=== PATIENT | female | born 1990 | race Caucasian/White ===

== ENCOUNTER 2018-11-14 05:54 | Emergency (ER) | payer OTHER ==
[~2018-11-14] VITALS: Ht 157.5 cm; Wt 68.0 kg
[2018-11-14 06:10] VITALS: BP 122/78
[2018-11-14] MEDS ORDERED: AZIT250T PO (06:39)
[2018-11-14] MEDS ORDERED: ALBU2.5V8 IH (06:39)
[2018-11-14] MEDS ORDERED: D-ME118S2 PO (06:39)
--- NOTE | 2018-11-14 06:39 | PHYS DOC ---
Past History Past Medical History: No Pertinent History Past Surgical History: Spleenectomy Smoking: Non-smoker Alcohol Use: None Drug Use: None Adult General Chief Complaint Chief Complaint: COUGH HPI HPI Patient is a 28-year-old female presents complaining of cough and nasal congestion. Patient has a sick daughter with symptoms that started yesterday. Patient's symptoms started late yesterday/early this morning. 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 Patient is not currently taking any medicines. Nothing makes the cough better or worse. No difficulty breathing. Nonproductive cough. Symptoms are mild to moderate.[] Review of Systems Review of Systems Constitutional: Denies fever or chills [] Eyes: Denies change in visual acuity, redness, or eye pain [] HENT: See history of present illness[] Respiratory: See history of present illness[] Cardiovascular: No chest pain or palpitations[] GI: Denies abdominal pain, nausea, vomiting, bloody stools or diarrhea [] : Denies dysuria or hematuria [] Musculoskeletal: Denies back pain or joint pain [] Integument: Denies rash or skin lesions [] Neurologic: Denies headache, focal weakness or sensory changes [] Endocrine: Denies polyuria or polydipsia [] All other systems were reviewed and found to be within normal limits, except as documented in this note. Allergies Allergies Allergies Coded Allergies Type Severity Reaction Last Updated Verified amoxicillin Allergy Mild 11/14/18 Yes Physical Exam Physical Exam Constitutional: Well developed, well nourished, no acute distress, non-toxic appearance. [] HENT: Normocephalic, atraumatic, bilateral external ears normal, oropharynx moist, no oral exudates, nose normal. Posterior pharyngeal streaking is present[] Eyes: PERRLA, EOMI, conjunctiva normal, no discharge. [] Neck: Normal range of motion, no tenderness, supple, no stridor. [] Cardiovascular:Heart rate regular rhythm, no murmur [] Lungs & Thorax: Bilateral breath sounds clear to auscultation no retractions, no increased work of breathing [] Abdomen: Bowel sounds normal, soft, no tenderness, no masses, no pulsatile masses. [] Skin: Warm, dry, no erythema, no rash. [] Back: No tenderness, no CVA tenderness. [] Extremities: No tenderness, no cyanosis, no clubbing, ROM intact, no edema. [] Neurologic: Alert and oriented X 3, normal motor function, normal sensory f unction, no focal deficits noted. [] Psychologic: Affect normal, judgement normal, mood normal. [] Current Patient Data Vital Signs Vital Signs Date Time Temp Pulse Resp B/P (MAP) Pulse Ox O2 Delivery O2 Flow Rate FiO2 11/14/18 06:10 98.2 90 20 96 Room Air EKG EKG [] Radiology/Procedures Radiology/Procedures [] Course & Med Decision Making Course & Med Decision Making Pertinent Labs and Imaging studies reviewed. (See chart for details) Medical decision making: Patient with what appears to be an upper respiratory infection. We will treat with prophylactic antibiotics given her history of splenectomy. Lung sounds are clear normal oxygen saturation do not believe there to be a pneumonia at this time. Will also provide symptomatic relief.[] Dragon Disclaimer Dragon Disclaimer This electronic medical record was generated, in whole or in part, using a voice recognition dictation system. Departure Departure: Impression: Primary Impression: Upper respiratory infection Disposition: HOME, SELF-CARE Condition: IMPROVED Referrals: [facility] (PCP) Patient Instructions: Splenectomy, Long-Term Care After, Upper Respiratory Infection, Adult Additional Instructions: Follow-up with your regular doctor/sick call in 2 days. Drink plenty of fluids. Return to the ER if worsening difficulty breathing or any other concerns. Scripts Albuterol Sulfate (VENTOLIN HFA INHALER) 18 Gm Hfa.aer.ad 2 PUFF IH PRN Q4HRS PRN for COUGH, #1 INHALER 0 Refills Prov: TAMAR NOLEN DO 11/14/18 Azithromycin (ZITHROMAX) 250 Mg Tablet 1 PKG PO UD for upper respiratory infection, #1 PKG Prov: TAMAR NOLEN DO 11/14/18 D-Methorphan Hb/Prometh Hcl (PROMETHAZINE-DM SYRUP) 118 Ml Syrup 5 ML PO PRN Q4HRS for CONGESTION, #120 ML Prov: TAMAR NOLEN DO 11/14/18 Problem Qualifiers Primary Impression: Upper respiratory infection URI type: unspecified URI Qualified Codes: J06.9 - Acute upper respiratory infection, unspecified TAMAR NOLEN DO Nov 14, 2018 06:39
== END 2018-11-14 06:49 | disposition home or self-care (01) ==
LOC: ER 05:54
DX: J06.9 Acute upper respiratory infection, unspecified (principal); Z88.1 Allergy status to other antibiotic agents
CPT/HCPCS: 99283

== ENCOUNTER 2019-01-10 06:00 | Emergency (ER) | payer OTHER ==
[~2019-01-10] VITALS: Ht 157.5 cm; Wt 68.0 kg
[~2019-01-10 06:00] MED LIST: ALBU2.5V8 IH; AZIT250T PO; PROM118S9 PO
[2019-01-10 06:10] VITALS: BP 120/67
--- NOTE | 2019-01-10 06:30 | PHYS DOC ---
Past History Past Medical History: No Pertinent History Past Surgical History: Spleenectomy, Other Additional Past Surgical Histo: wisdom teeth extraction Smoking: Non-smoker Alcohol Use: None Drug Use: None Adult General Chief Complaint Chief Complaint: COUGH HPI HPI Patient is a 28-year-old female presents with nasal congestion and cough for the past 2 days. Nonproductive cough. No fever. No nausea or vomiting. Patient has a sick daughter with similar symptoms. Symptoms are mild. She has not been seen at sick call yet. Diffuse body aches are present. 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.[] Review of Systems Review of Systems Constitutional: Denies fever or chills [] Eyes: Denies change in visual acuity, redness, or eye pain [] HENT: Denies shortness of breath, see history of present illness [] Cardiovascular: No chest pain or palpitations[] GI: Denies abdominal pain, nausea, vomiting, bloody stools or diarrhea [] : Denies dysuria or hematuria [] Musculoskeletal: Denies back pain or joint pain [] Integument: Denies rash or skin lesions [] Neurologic: Denies headache, focal weakness or sensory changes [] Endocrine: Denies polyuria or polydipsia [] All other systems were reviewed and found to be within normal limits, except as documented in this note. Allergies Allergies Allergies Coded Allergies Type Severity Reaction Last Updated Verified amoxicillin Allergy Mild 11/14/18 Yes Physical Exam Physical Exam Constitutional: Well developed, well nourished, no acute distress, non-toxic appearance. [] HENT: Normocephalic, atraumatic, bilateral external ears normal, oropharynx moist, no oral exudates, nose with mild clear rhinorrhea. [] Eyes: PERRLA, EOMI, conjunctiva normal, no discharge. [] Neck: Normal range of motion, no tenderness, supple, no stridor. [] Cardiovascular:Heart rate regular rhythm, no murmur [] Lungs & Thorax: Bilateral breath sounds clear to auscultation, no increased work of breathing [] Abdomen: Not examined. [] Skin: Warm, dry, no erythema, no rash. [] Back: No tenderness, no CVA tenderness. [] Extremities: No tenderness, no cyanosis, no clubbing, ROM intact, no edema. [] Neurologic: Alert and oriented X 3, normal motor function, normal sensory func tion, no focal deficits noted. [] Psychologic: Affect normal, judgement normal, mood normal. [] Current Patient Data Vital Signs Vital Signs Date Time Temp Pulse Resp B/P (MAP) Pulse Ox O2 Delivery O2 Flow Rate FiO2 01/10/19 06:10 98.7 91 16 98 Room Air EKG EKG [] Radiology/Procedures Radiology/Procedures Chest x-ray showed no infiltrate, no effusion, no pneumothorax[] Course & Med Decision Making Course & Med Decision Making Pertinent Labs and Imaging studies reviewed. (See chart for details) ED course: Patient arrived, was placed in bed, and tolerated exam well. She was transported to and from radiology with any complications. After return the imaging findings, these were discussed with the patient who voiced understa nding. All questions were answered. She was discharged in improved condition. Medical decision making: Initially concerned about possibility of a pneumonia in a patient with a splenectomy. There is no evidence of a pneumonia. Nontoxic patient. Believe this to be an upper respiratory infection that she received from her daughter.[] Dragon Disclaimer Dragon Disclaimer This electronic medical record was generated, in whole or in part, using a voice recognition dictation system. Departure Departure: Impression: Primary Impression: Upper respiratory infection Disposition: HOME, SELF-CARE Condition: IMPROVED Referrals: [facility] (PCP) Patient Instructions: Upper Respiratory Infection, Adult Additional Instructions: Follow-up with your regular doctor/sick call in 2 days. Drink plenty of fluids. Return to duty. Return to the ER if difficulty breathing, fever of more than 101�, or any other concerns. Scripts Ibuprofen (IBUPROFEN) 600 Mg Tablet 600 MG PO TID for pain or fever, #30 TAB Prov: TAMAR NOLEN DO 01/10/19 D-Methorphan Hb/Prometh Hcl (PROMETHAZINE-DM SYRUP) 118 Ml Syrup 5 ML PO PRN Q4HRS for CONGESTION, #120 ML Prov: TAMAR NOLEN DO 01/10/19 Problem Qualifiers Primary Impression: Upper respiratory infection URI type: unspecified URI Qualified Codes: J06.9 - Acute upper respiratory infection, unspecified TAMAR NOLEN DO Jan 10, 2019 06:30
[2019-01-10] MEDS ORDERED: IBUP600T16 PO (06:48)
[2019-01-10] MEDS ORDERED: PROM118S9 PO (06:48)
--- NOTE | 2019-01-10 07:24 | RAD ---
CHEST PA LATERAL History: Congestion for 2 days Comparison: None. Findings: 2 views of the chest are submitted. There is no infiltrate, pneumothorax, or effusion. Pericardial cardiac silhouette is within normal limits in size. There are some clips of the left upper quadrant of the abdomen. Impression: 1. There is no radiographic evidence of acute cardiopulmonary disease. Electronically signed by: Adolfo Salcedo MD (01/10/2019 7:21 AM) [id number]
== END 2019-01-10 06:45 | disposition home or self-care (01) ==
LOC: ER 06:00
DX: J06.9 Acute upper respiratory infection, unspecified (principal); Z88.1 Allergy status to other antibiotic agents
CPT/HCPCS: 71046; 99284